=== PATIENT | female | born 2005 | race Hispanic/Latino ===

== ENCOUNTER 2023-11-21 17:08 | Emergency (ER) | payer BC, SELFPAY ==
[2023-11-21 17:20] VITALS: BP 124/78; PULSE 92; RESP 16; TEMP 37.2; O2SAT 99
--- NOTE | 2023-11-21 18:06 | ED.GENADULT ---
HPI - General Adult General Chief complaint: Urogenital-Female Stated complaint: UTI SYMPTOMS Time Seen by Provider: 11/21/23 18:06 History of Present Illness HPI narrative: patient presents with complaints of urinary frequency and burning since yesterday. She denies any back pain or abdominal pain. She denies any fever, chills, sweats. She denies any vaginal discharge. Related Data Allergies Allergy/AdvReac Type Severity Reaction Status Date / Time No Known Allergies Allergy Verified 11/21/23 17:20 Review of Systems Review of Systems: All systems reviewed & are unremarkable except as noted in HPI and below Constitutional: Constitutional: Reports no additional constitutional complaints ENT: Reports system reviewed and no additional complaints, except as documented Cardiovascular: Cardiovascular: Reports no additional cardiovascular complaints Respiratory: Respiratory: Reports no additional respiratory complaints Gastrointestinal: Gastrointestinal: Reports no additional gastrointestinal complaints Exam Const: General: cooperative, no acute distress, alert and awake Orientation/consciousness: oriented to person, oriented to place and oriented to time HENMT: Head: normal to inspection Resp: Effort & Inspection: normal respiratory effort and able to speak in complete sentences Auscultation: clear to auscultation bilaterally, no crackles, no rales, no rhonchi and no wheezes Cardio: Palpation: normal PMI Rate: regular rate Rhythm: regular rhythm Heart sounds: S1 normal heart sound present and S2 normal heart sound present : General: Yes bladder normal to palpation and Yes no CVA tenderness Back/Spine/Pelvis: Back: No CVA tenderness Neuro: General: oriented to person, oriented to place and oriented to time Cranial nerves: Yes CN's II-XII intact bilaterally Psych: Appearance: grossly normal Thought process: Normal thought process present Insight: Good insight present (Psych) Judgement: Good judgement present (Psych) Course Course Level of Care: Express Care Visit Vital Signs Vital signs: Vital Signs Temperature 99 F 11/21/23 17:20 Pulse Rate 92 11/21/23 17:20 Respiratory Rate 16 11/21/23 17:20 Blood Pressure 124/78 11/21/23 17:20 Pulse Oximetry 99 11/21/23 17:20 Temperature 99 F 11/21/23 17:20 Pulse Rate 92 11/21/23 17:20 Respiratory Rate 16 11/21/23 17:20 Blood Pressure 124/78 11/21/23 17:20 Pulse Oximetry 99 11/21/23 17:20 Medical Decision Making MDM Narrative Medical decision making narrative: Patient with 1 day symptoms, nontoxic-appearing with reassuring exam. Abnormal UA. Will treat with Macrobid, culture sent. Follow with primary care provider. Emergency department for new or worsening symptoms. Differential Diagnosis Differential Diagnosis: Differential diagnoses include pyelonephritis, UTI, dysuria Medical Records Medical records reviewed: Yes I reviewed the external patient's medical records. Vital Signs Vital Signs: Vital Signs Temperature 99 F 11/21/23 17:20 Pulse Rate 92 11/21/23 17:20 Respiratory Rate 16 11/21/23 17:20 Blood Pressure 124/78 11/21/23 17:20 Pulse Oximetry 99 11/21/23 17:20 Temperature 99 F 11/21/23 17:20 Pulse Rate 92 11/21/23 17:20 Respiratory Rate 16 11/21/23 17:20 Blood Pressure 124/78 11/21/23 17:20 Pulse Oximetry 99 11/21/23 17:20 Lab Data Labs: Lab Results 11/21/23 Range/Units 18:03 POC Urine Color Pending POC Urine Clarity Pending POC Urine pH Pending POC Ur Specif [place] Pending POC Urine Protein Pending POC Ur Glucose (UA) Pending POC Urine Ketones Pending POC Urine Blood Pending POC Urine Nitrite Pending POC Urine Bilirubin Pending POC Urine Urobilinogen Pending POC U Leukocyte Esteras Pending Misc Test Comment Pending Discharge Plan Discharge Clinical Impression: Urinary tract infection Mike
[2023-11-21 18:07] LABS: EDUAAPPEAR Cloudy; EDUABILI 1+; EDUABLOOD 3+; EDUACOLOR1 Brown; EDUAGLUCOSE Negative; EDUAKETONE 1+; EDUALEUKO 1+; EDUANITRATE Negative; EDUAPH 5.5; EDUAPROTEIN 3+
== END 2023-11-21 18:14 | disposition home or self-care (01) ==
PROVIDERS: Emergency Provider Nurse Practitioner Family
DX: N30.01 Acute cystitis with hematuria (principal)
CPT/HCPCS: 81003; 87086; 99213; G0463